=== PATIENT | male | born 1945 | race Caucasian/White ===

== ENCOUNTER → 2017-01-09 | Outpatient (CLI) | payer BC ==
[~2017-01-09] MED LIST: ACET-1311 PO; ASCO500T3 PO; MAGNESIUM SULFATE PO; MELATAB2 PO; MULT-506 PO; WARF2TAB PO
== END | disposition home or self-care (01) ==
LOC: C.RDSM 08:30
PROVIDERS: ATTEND Physical Medicine & Rehabilitation Sports Medicine
DX: M16.11 Unilateral primary osteoarthritis, right hip (principal); Z96.641 Presence of right artificial hip joint

== ENCOUNTER → 2017-08-14 | Outpatient (CLI) | payer BC | END | disposition home or self-care (01) | LOC: C.RDSM 11:59 | PROVIDERS: ATTEND Physical Medicine & Rehabilitation Sports Medicine | DX: M16.11 Unilateral primary osteoarthritis, right hip (principal); Z96.641 Presence of right artificial hip joint ==

== ENCOUNTER → 2017-08-22 | Outpatient (CLI) | payer BC ==
--- NOTE | 2017-08-22 11:36 | DIAGNOSTIC IMAGING REPORT ---
LUMBAR SPINE W/O CONTRAST CLINICAL HISTORY: 72 years-old Male with LUMBAR DISC HERNIATION WITH RADICULOPATHY. Acute low back pain with pain and numbness of the lower extremities COMPARISON: Lumbar spine MR 01/11/2015 TECHNIQUE: Multiplanar, multi sequence MRI of the lumbar spine was performed without intravenous contrast. FINDINGS: The large [id number] software systems architect localizer images demonstrate approximately 13 degrees lumbar spine levoscoliosis. No gross abnormality of the imaged lower chest, abdomen or pelvis identified. Several of the sequences are moderately motion degraded, notably the sagittal T1 and axial images. No acute fracture or subluxation. No marrow replacing process. Moderate bone marrow edema involves the left pedicle at L5 as seen on image 13 series 4 suggesting stress response or reactive changes from underlying facet arthrosis. 11 x 4 mm synovial cyst is noted posterior to the left L3/L4 facet. There is 4 mm anterolisthesis L4 on L5, likely secondary to severe facet arthropathy. Multilevel discogenic degenerative changes and facet arthropathy as below. Epidural lipomatosis of the lumbar spine is seen at L4-L5, notably posteriorly which contributes to the degree of background central canal narrowing. T12-L1: Moderate intervertebral disc space narrowing with circumferential annular disc bulge and moderate facet arthropathy flattening the ventral thecal sac. No significant central canal or foraminal narrowing on the sagittal images alone. Unchanged. L1-L2: Moderate intervertebral disc space narrowing with circumferential annular disc bulge, posterior spondylitic spurring, moderate facet arthropathy with ligamentum flavum thickening and small facet effusions. No significant central canal or foraminal narrowing. Unchanged. L2-L3: Moderate intervertebral disc space narrowing with posterior spinal spurring, moderate facet arthropathy with ligament flavum thickening, small facet effusions and broad-based posterior disc bulge findings cause mild to moderate central canal stenosis with AP dimension of the thecal sac measuring 7 mm and mild bilateral foraminal narrowing. Findings have slightly progressed from comparison. L3-L4: Moderate intervertebral disc space narrowing with posterior spondylitic spurring, circumferential disc bulge and small annular fissure. Postoperative changes at this level compatible with prior laminectomy. Evaluation however of the posterior elements is somewhat limited secondary to micrometallic artifact. Moderate facet arthrosis. Previously noted disc extrusion is no longer identified. There is mild central canal, moderate right and mild left foraminal narrowing. L4-L5: Severe facet arthropathy with ligamentum flavum thickening. Moderate intervertebral disc space narrowing with circumferential annular disc bulge. The canal is narrowed to 6 mm in AP dimension causing severe central canal, moderate to severe right and moderate left foraminal stenosis. These findings have progressed from prior study. L5-S1: Moderate intervertebral disc space narrowing with posterior spondylitic spurring, moderate to severe facet arthrosis with ligament flavum thickening. Annular fissure with Broad-based left paracentral/left lateral recess and foraminal disc extrusion measures up to 1.7 x 0.5 x 0.5 cm in transverse, AP and craniocaudal dimensions respectively causing severe left lateral recess, mild central canal and severe left foraminal narrowing. There is abutment and displacement of the left S1 nerve root. There is at least moderate right foraminal stenosis. These findings have worsened from prior study. IMPRESSION: 1. Postoperative changes of laminectomy with posterior decompression at L3-L4. Previously noted disc extrusion at this level is no longer present. 2. Multilevel discogenic degenerative changes and facet arthropathy as detailed level by level above, mildly progressed from comparison study 01/11/2015. 3. At L2-L3 there is mild to moderate central canal and mild bilateral foraminal narrowing. 4. At L4-L5, severe facet arthropathy with discogenic degenerative changes causes severe central canal, moderate to severe right and moderate left foraminal narrowing. 5. At L5-S1, there is a broad-based left paracentral/left lateral recess and foraminal disc extrusion causing severe left lateral recess, mild central canal and severe left foraminal narrowing abutting and displacing the adjacent left S1 nerve root. 6. Bone marrow edema of the left S5 pedicle suggests stress response or may be reactive from underlying degenerative changes. The above report was generated using voice recognition software. It may contain grammatical, syntax or spelling errors. Electronically signed by: Tyree Landeros M.D. 08/22/2017 11:34 AM Dictated Date/Time: 08/22/2017 10:35 AM
== END | disposition home or self-care (01) ==
LOC: C.MRI 09:25
PROVIDERS: ATTEND Physical Medicine & Rehabilitation Sports Medicine
DX: M16.11 Unilateral primary osteoarthritis, right hip (principal); Z96.641 Presence of right artificial hip joint; M51.17 Intervertebral disc disorders with radiculopathy, lumbosacral region

== ENCOUNTER 2017-12-17 17:55 | Emergency (ER) | payer OTHER ==
[~2017-12-17] VITALS: Ht 167.6 cm; Wt 79.7 kg
[2017-12-17 18:00] VITALS: TEMP 37.2; Ht 167.6 cm; Wt 79.7 kg
[2017-12-17] MEDS ORDERED: HOME1TAB8 PO (18:18)
[2017-12-17] MEDS ORDERED: MAGN250T9 PO (18:18)
--- NOTE | 2017-12-17 18:54 | DIAGNOSTIC IMAGING REPORT ---
LUMBAR SPINE 2 OR 3 VIEWS CLINICAL HISTORY: lower back pain COMPARISON STUDY: MRI performed August 2017 FINDINGS: No acute fractures are visualized. There are mild multilevel degenerative changes. There is a grade 1 spondylolisthesis of L4 and L5. There is an L3-4 spinous process spacer. IMPRESSION: Postsurgical change. No acute fractures identified. Degenerative changes Electronically signed by: Betito Tavera M.D. 12/17/2017 6:53 PM Dictated Date/Time: 12/17/2017 6:52 PM
[2017-12-17 19:45] VITALS: BP 145/84; PULSE 80; O2SAT 95
[2017-12-17] MEDS ORDERED: PRED20TA PO (20:07)
--- NOTE | 2017-12-17 21:48 | EMERGENCY ROOM VISIT NOTE ---
History Report prepared by Corbin: Aleksandra Yao Under the Supervision of: Kerry MichelO. First contact with patient: 18:01 Chief Complaint: BACK PAIN Stated Complaint: BACK PAIN History of Present Illness The patient is a 72 year old male who presents to the Emergency Room with complaints of persistent back pain since this morning. He describes it as soreness. He notes that he was getting out of bed this morning and the pain was worse than normal. He notes the pain exacerbated when he began walking. He notes that he is limping due to the pain. He reports leg weakness in bilateral thighs, though he is able to walk. He also notes mild leg numbness which is not present currently. He notes a cough and runny nose. He notes mild abdominal pain. He has no pain at this time while he was sitting in bed. He has a history of back pain, though reports his symptoms are new. Pt denies headache, change in vision, fevers, chest pain, shortness of breath, nausea, vomiting, diarrhea, or pain with urination. No saddle paresthesias. Able to move his bowels and urinate without difficulty. Source of History: patient Onset: since this morning Position: back Quality: other (soreness) Timing: other (persistent) Modifying Factors (Worsening): other (walking) Associated Symptoms: + cough, + abdominal pain (mild), + weakness (leg), + numbness (mild leg ), No fevers, No headache, No chest pain, No SOB, No nausea, No vomiting, No diarrhea, No urinary symptoms (no pain with urination) Note: He notes a runny nose. He denies any change in vision. Review of Systems See HPI for pertinent positives & negatives. A total of 10 systems reviewed and were otherwise negative. Past Medical & Surgical Medical Problems: (1) Back pain (2) DJD (degenerative joint disease) of hip (3) Kidney stones Family History No pertinent family history Social History Smoking Status: Never Smoker Smokeless Tobacco Use: No Alcohol Use: none Marital Status: single Housing Status: lives alone Occupation Status: employed Current/Historical Medications Scheduled Acetaminophen (Tylenol), 650 MG PO PRN Prednisone (Prednisone), 1 TAB PO DAILY Scheduled PRN Ascorbic Acid (Vitamin C), 500 MG PO DAILY PRN for PRN Homeopathic Products (Zicam Cold Remedy), 1 TAB PO DIRECTED PRN for COLD SYMPTOMS Magnesium (Magnesium), 1 TAB PO DAILY PRN for PRN Melatonin (Melatonin Maximum Strengt), 1 TAB PO HS PRN for Sleep Multivitamin (Multivitamin), 1 TAB PO DAILY PRN for PRN Allergies Coded Allergies: Gluten (Verified Allergy, Severe, GI INTOLERANCE, 12/17/17) Lactose (Verified Allergy, Severe, G I INTOLERANCE, 12/17/17) Physical Exam Vital Signs Date Time Temp Pulse Resp B/P (MAP) Pulse Ox O2 Delivery O2 Flow Rate FiO2 12/17/17 19:45 80 18 145/84 95 Room Air 12/17/17 18:00 37.2 73 18 165/101 95 Room Air Physical Exam GENERAL: Sitting on edge of bed, alert, well appearing, well nourished, no distress, non-toxic EYE EXAM: normal conjunctiva. OROPHARYNX: no exudate, no erythema, lips, buccal mucosa, and tongue normal and mucous membranes are moist NECK: supple, no nuchal rigidity, no adenopathy, non-tender LUNGS: Clear to auscultation. Normal chest wall mechanics HEART: no murmurs, S1 normal and S2 normal ABDOMEN: abdomen soft, non-tender, normo-active bowel sounds, no masses, no rebound or guarding. BACK: Back is symmetrical on inspection and there is no deformity, no midline tenderness, no CVA tenderness. Old midline incision in lower lumbar region. SKIN: no rashes and no bruising UPPER EXTREMITIES: upper extremities are grossly normal. LOWER EXTREMITIES: No pitting edema. Flexion and extension of hip, knee, ankle, and EHL 5/5 bilaterally. Gross sensation intact. Able to ambulate on heels and toes, unable to appreciate patellar and Achilles reflexes. NEURO EXAM: Normal sensorium, cranial nerves II-XII grossly intact, normal speech, no gross weakness of arms. Medical Decision & Procedures ER Provider Diagnostic Interpretation: Radiology results as stated below per my review and the radiologist's interpretation: LUMBAR SPINE 2 OR 3 VIEWS CLINICAL HISTORY: lower back pain COMPARISON STUDY: MRI performed August 2017 FINDINGS: No acute fractures are visualized. There are mild multilevel degenerative changes. There is a grade 1 spondylolisthesis of L4 and L5. There is an L3-4 spinous process spacer. IMPRESSION: Postsurgical change. No acute fractures identified. Degenerative changes Electronically signed by: Betito Tavera M.D. 12/17/2017 6:53 PM Dictated Date/Time: 12/17/2017 6:52 PM ED Course ED COURSE: Vital signs were reviewed and showed hypertensive. The patients medical record was reviewed The above diagnostic studies were performed and reviewed. ED treatments and interventions as stated above. 1804: The patient was evaluated in room A3. A complete history and physical examination was performed. 1934: I reassessed the patient at this time. He is resting. 1999: Ordered Prednisone 10 mg PO 2009: Upon reevaluation, the patient is feeling better. I discussed my findings with the patient and he understands and agrees with the treatment plan. Based on the patients age, coexisting illnesses, exam and lab findings the decision to treat as an outpatient was made. The patient remained stable while under my care. The patient appeared well at the time of discharge. Medical Decision Differential diagnoses includes but is not limited to lumbar radiculopathy, muscle strain, facture, cauda equina, mass, and disc herniation. Patient is a 72-year-old male that presents to ER with mild pain in his lower back which started earlier today. Started while getting out of bed. On exam he is neurologically intact. Able to ambulate without difficulty. He is able to walk on his heels and toes. He only has pain with up and walking around. There is no focal deficit on exam. No fevers. No recent trauma. X-rays were unremarkable. Discussed with orthopedics. I did give him a small dose of steroids as he was concerned that this could be radicular and worsen. With his minimal pain I did not feel there was a benefit to narcotics. Recommend Tylenol /Motrin. Discussed with Pt concerning signs and symptoms to watch out for. Pt was instructed to follow up with their PCP and discussed with the patient their option to return to the ED at anytime for persistent or worsening symptoms. The appropriate anticipatory guidance and out-patient management, including indications for return to the emergency department, were explained at length to the patient and understood. Medication Reconcilliation Current Medication List: was personally reviewed by me Blood Pressure Screening Patient's blood pressure: Elevated blood pressure Blood pressure disposition: Elevated BP felt to be situational Impression Primary Impression: Back pain Scribe Attestation The scribe's documentation has been prepared under my direction and personally reviewed by me in its entirety. I confirm that the note above accurately reflects all work, treatment, procedures, and medical decision making performed by me. Departure Information Dispostion Home / Self-Care Prescriptions Prednisone (Prednisone) 20 Mg Tab 1 TAB PO DAILY for 3 Days, #3 TAB Prov: Khari James, DO 12/17/17 Referrals David Randolph MD (PCP) Forms HOME CARE DOCUMENTATION FORM, IMPORTANT VISIT INFORMATION Patient Instructions Back Pain - [facility], [facility] Additional Instructions Please follow up with your primary care doctor with in the next 24 hours. Any worsening of your symptoms, please return to the ED immediately. This includes any fevers greater than 100.4, worsening pain, weakness or numbness in the arms or legs, chest pain, shortness breath, persistent nausea, vomiting, unable to eat or drink, or any other concerning signs or symptoms from your standpoint. Please take the steroids as prescribed. Problem Qualifiers Primary Impression: Back pain Back pain location: low back pain Chronicity: acute Back pain laterality: unspecified Sciatica presence: unspecified whether sciatica present Qualified Codes: M54.5 - Low back pain
== END 2017-12-17 20:19 | disposition home or self-care (01) ==
LOC: C.EDA 17:55
DX: M54.5 Low back pain (principal); M16.10 Unilateral primary osteoarthritis, unspecified hip; Z87.442 Personal history of urinary calculi; Z91.011 Allergy to milk products; Z91.018 Allergy to other foods

== ENCOUNTER → 2018-01-29 | Outpatient (CLI) | payer OTHER ==
[~2018-01-29] MED LIST changes: +HOME1TAB8 PO; +MAGN250T9 PO; -MAGNESIUM SULFATE PO; -WARF2TAB PO
== END | disposition home or self-care (01) ==
LOC: C.RDSM 15:09
PROVIDERS: ATTEND Physical Medicine & Rehabilitation Sports Medicine
DX: M25.551 Pain in right hip (principal); M16.11 Unilateral primary osteoarthritis, right hip; Z96.641 Presence of right artificial hip joint

== ENCOUNTER → 2018-02-14 | Outpatient (CLI) | payer OTHER | END | disposition home or self-care (01) | LOC: C.RDSM 14:19 | PROVIDERS: ATTEND Family Medicine | DX: M25.562 Pain in left knee (principal) ==

== ENCOUNTER → 2018-05-11 | Outpatient (CLI) | payer OTHER ==
--- NOTE | 2018-05-11 09:43 | DIAGNOSTIC IMAGING REPORT ---
LUMBAR SPINE 2 OR 3 VIEWS HISTORY: 72 years-old Male S/P LAMINECTOMY status post L4-L5 laminectomy COMPARISON: Lumbar spine radiographs 12/17/2017 TECHNIQUE: 2 views of the lumbar spine FINDINGS: L3-L4 spinous process space or is unchanged. Levoscoliosis of the lumbar spine. Interval placement of posterior interbody lanny and screw fusion at L4-L5. Grade 1 anterolisthesis L4 on L5 is unchanged. At least mild multilevel intervertebral disc space narrowing with spondylitic spurring. Severe multilevel facet arthrosis. No acute fracture. Right hip arthroplasty partially imaged. Moderate left hip posterior arthritis. IMPRESSION: Status post laminectomy with posterior interbody lanny and screw fusion at L4-L5 with unchanged alignment. The above report was generated using voice recognition software. It may contain grammatical, syntax or spelling errors. Electronically signed by: Tyree Landeros M.D. 05/11/2018 9:42 AM Dictated Date/Time: 05/11/2018 9:37 AM
== END | disposition home or self-care (01) ==
LOC: C.RDSM 09:00
PROVIDERS: ATTEND Orthopaedic Surgery
DX: Z98.890 Other specified postprocedural states (principal)

== ENCOUNTER → 2018-06-01 | Outpatient (CLI) | payer OTHER ==
--- NOTE | 2018-06-01 09:50 | DIAGNOSTIC IMAGING REPORT ---
LUMBAR SPINE 2 OR 3 VIEWS CLINICAL HISTORY: 72 years-old Male presenting with F/U POST OP LAMINECTOMY. TECHNIQUE: Frontal and lateral views of the lumbar spine were obtained. COMPARISON: 05/11/2018. FINDINGS: Redemonstration of posterior bilateral transpedicular screw and lanny fixation of L4-5 with a L3-4 interspinous spacer. Laminectomy of L4 may be present. Mild levoscoliotic curvature of the lumbar spine centered at L3. This is unchanged. Minimal anterolisthesis of L4 on L5 again noted. Vertebral body heights and alignment otherwise maintained. Intervertebral disc heights preserved. Mild multilevel degenerative change. Osseous neural foraminal narrowing may be present at L3-4 though the appearance may also be due to scoliosis. No radiographic evidence of a compression deformity or acute subluxation. Nonobstructive bowel gas pattern. Total right hip arthroplasty. Atherosclerosis. IMPRESSION: 1. L4-5 posterior fusion with L3-4 interspinous spacer and suspected L4 laminectomy. This is unchanged from prior. 2. No radiographic evidence of acute osseous injury. 3. Additional findings as above. Electronically signed by: Richard Wong M.D. 06/01/2018 9:48 AM Dictated Date/Time: 06/01/2018 9:45 AM
== END | disposition home or self-care (01) ==
LOC: C.RDSM 07:00
PROVIDERS: ATTEND Orthopaedic Surgery
DX: M54.16 Radiculopathy, lumbar region (principal)

== ENCOUNTER 2020-03-31 05:17 | Observation (INO) ==
--- NOTE | 2020-03-18 20:05 | PAT Medication Instructions ---
Medication Instructions Date of Service March 18, 2020 Home Medications atorvastatin 10 mg PO WK naproxen 250 mg PO BID PRN omeprazole 20 mg PO DAILY PRN Continue as directed atorvastatin 10 mg PO WK ASK your surgeon for instructions naproxen 250 mg PO BID PRN Take morning of surgery With a small sip of water, OTHERWISE NOTHING TO EAT OR DRINK AFTER MIDNIGHT: omeprazole 20 mg PO DAILY PRN (if needed) Take evening before surgery omeprazole 20 mg PO DAILY PRN (if needed) Other Notes If you have any questions please call us at [phone] or [phone] or [phone] or [phone]
--- NOTE | 2020-03-19 13:34 | Anesthesiology Consultation ---
Date of Service March 19, 2020 Assessment & Plan (1) Encounter for pre-operative examination: Per PAT assessment on 03/19: Travel screen negative. No known COVID-19 positive contacts. No current COVID-19 related symptoms. No hx of COVID-19 testing. - Mild hyperkalemia (5.2) on preop labs: at anesthesiologist discretion AM DOS if repeat K+ needed. Chart Review Chart Review: Acceptable Risk for Surgery (pending surgeon-ordered PCP clearance done 03/17 (Dr. Randolph)) and Patient seen in Pre Admission Testing Teaching & Discussion Pre-Anesthesia Teaching/Discussion Notes: Instructed NPO after midnight before surgery,except medications with 15 cc of water. Medication instructions provided according to the PAT guidelines. History Surgery Operation Date: 03/31/20 07:00 Proposed Procedures p Left Total Hip Arthroplasty - Amrik Cooley MD Height/Weight Height: 5 ft 6.14 in Weight: 78.2 kg Allergies Allergy/AdvReac Type Severity Reaction Status Date / Time gluten Allergy Severe GI Verified 03/16/20 13:48 INTOLERANCE lactose Allergy Severe G I Verified 03/16/20 13:48 INTOLERANCE Medications Home Medications Medication Instructions Recorded Confirmed Last Taken atorvastatin 10 mg PO WK 03/16/20 03/16/20 Unknown naproxen 250 mg PO BID PRN 03/16/20 03/16/20 Unknown omeprazole 20 mg PO DAILY PRN 03/16/20 03/16/20 Unknown Past Medical History Medical History Acid reflux controlled Gout History of kidney stones History of melanoma Hyperlipidemia Osteoarthritis Osteoporosis Exercise / Class Metabolic Activity II 4-5 Yardwork/Stairs/Walk up hill Past Family History Family History Father Diabetes Other No family history of adverse response to anesthesia Past Surgical History Surgical History History of appendectomy History of lumbar surgery x 2 History of melanoma excision History of right hip replacement History of surgery Rt ureter History of tooth extraction Past Anesthesia History No Hx of Anesthesia Complications and No Family Hx of Anesthesia Complications History of PONV No Hx of PONV and No Hx of Motion Sickness Social History Smoking Status: Never smoker Do You Dip or Chew Tobacco: No Hx Alcohol Use: Yes alcohol intake frequency: a few times a month Hx Substance Use: No substance use type: does not use Review of Systems Patient denies chest pain, shortness of breath, dyspnea on exertion, fever, chills, cough, wheezing, palpitations. Physical Exam Vital Signs VITALS BP 132/75 P 56 TEMP 98.1 SP02 99%RA RESP 16 PHYSICAL Full neck and c-spine range of motion. Full TMJ range of motion. TMD 3 finger breaths Mallampati Score 2 Dentition: intact, + implants/crowns on sides/molars Lungs: clear throughout to auscultation Cardiac: regular rate and rhythm, no murmurs noted Spine: normal Carotid arteries: negative bruit Extremities: no edema Testing Laboratory Results 03/19/20 13:55 03/19/20 13:55 PT 11.0 Seconds (9.0-12.0) 03/19/20 13:55 INR 1.0 (0.9-1.1) 03/19/20 13:55 APTT 29.9 Seconds (21.0-31.0) 03/19/20 13:55 Urine Color Yellow 03/19/20 Unknown Urine Appearance Clear (Clear) 03/19/20 Unknown Urine pH 5.5 (4.5-7.5) 03/19/20 Unknown Ur Specific [place] 1.022 (1.000-1.030) 03/19/20 Unknown Urine Protein Negative (Negative) 03/19/20 Unknown Urine Glucose (UA) Negative (Negative) 03/19/20 Unknown Urine Ketones Negative (Negative) 03/19/20 Unknown Urine Nitrite Negative (Negative) 03/19/20 Unknown Ur Leukocyte Esterase Negative (Negative) 03/19/20 Unknown Blood Type O Positive 03/19/20 13:55 Antibody Screen NEGATIVE 03/19/20 13:55 Electrocardiogram Date: 03/19/20 SB at 48bpm. unconfirmed report. Chest X-Ray Date: 03/19/20 Findings: + NAD
--- NOTE | 2020-03-19 14:42 | XRay Report ---
XR chest Pre-admission PA/Lat HISTORY: Preop. COMPARISON: None. FINDINGS: The lungs are clear. Cardiac silhouette is normal in size. No pleural effusions. No pneumot horax. IMPRESSION: No acute process. ACT 112: Negative or not required by law. Electronically signed by: Ulysses Howard M.D. 03/19/2020 2:40 PM
[2020-03-19 15:21] LABS: Basophils # (auto) 0.03 K/uL (0-0.2); Basophils % (auto) 0.5 %; Eosinophils # (auto) 0.09 K/uL (0-0.5); Eosinophils % (auto) 1.6 %; Hematocrit (blood only) 44.4 % (42-52); Hemoglobin 15.4 g/dL (14.0-18.0); Lymphocytes % (auto) 49.2 %; Mean Corpuscular Hemoglobin 31.5 pg (25-34); Mean Corpuscular Hgb Conc 34.7 g/dL (32-36); Mean Corpuscular Volume 90.8 fL (80-100); Mean Platelet Volume 10.7 fL (7.4-10.4); Monocytes # (auto) 0.49 K/uL (0.11-0.59); Monocytes % (auto) 8.6 %; Neutrophils # (auto) 2.28 K/uL (1.4-6.5); Neutrophils % (auto) 40.1 %; Platelet Count 158 K/uL (130-400); RDW Coefficient of Variation 13.1 % (11.5-14.5); RDW Standard Deviation 43.5 fL (36.4-46.3); Red Blood Count 4.89 M/uL (4.7-6.1); White Blood Count 5.69 K/uL (4.8-10.8)
[2020-03-19 15:21] LABS: Appearance Urine Clear (Clear); Bilirubin Urine Negative (Negative); Blood Urine Negative (Negative); Color Urine Yellow; Glucose Urine UA Negative (Negative); Ketones Urine Negative (Negative); Leukocyte Esterase Urine Negative (Negative); Nitrite Urine Negative (Negative); Protein Urine Negative (Negative); Specific Gravity Urine 1.022 (1.000-1.030); Urobilinogen Urine Negative (Negative); pH Urine 5.5 (4.5-7.5)
[2020-03-19 15:31] LABS: BUN Creatinine Ratio 15.9 (10-20); Calcium 9.2 mg/dl (8.5-10.1); Creatinine Clr Calc Pharmacy 57.2 ml/min; Est GFR (African American) 75.7; Est GFR (Non-African American) 65.3; Potassium 5.2 mmol/L (3.5-5.1)
[2020-03-19 15:32] LABS: Partial Thromboplastin Ratio 1.1; Partial Thromboplastin Time 29.9 Seconds (21.0-31.0)
--- NOTE | 2020-03-19 23:37 | Electrocardiogram Report ---
Test Reason : Blood Pressure : / mmHG Vent. Rate : 048 BPM Atrial Rate : 048 BPM P-R Int : 198 ms QRS Dur : 080 ms QT Int : 454 ms P-R-T Axes : 061 029 020 degrees QTc Int : 405 ms Sinus bradycardia Otherwise normal ECG When compared with ECG of 04-FEB-2016 11:05, No significant change was found Confirmed by Naeem Diop ([id number]) on 03/19/2020 11:37:43 PM Referred By: mArik Cooley Confirmed By:Naeem Diop
--- NOTE | 2020-03-25 15:41 | History & Physical Report ---
Date of Service March 25, 2020 Assessment & Plan (1) Degenerative joint disease of left hip: Informed written consent to proceed with Left total hip arthroplasty will be obtained the morning of surgery.Postoperative prescriptions for Percocet and Coumadin will be provided at discharge from the hospital. Anticipate discharge to home with home health services. Preoperative lab work, EKG, and chest x-ray have been ordered. Medical clearance has been received from Dr. David Randolph. The patient already has access to a rolling walker. The patient is aware of the COVID-19 risks associated with surgical intervention. He is currently asymptomatic of any COVID-19 symptoms. He will obtain COVID-19 nasal swabs testing prior to surgery and results will be made available to him. History of Present Illness Chief Complaint: Left hip pain Primary Care Provider: David Randolph This 74-year-old white male presents today for his preoperative history and physical. He is scheduled to undergo a left hip total hip arthroplasty on 03/31/2020. The patient has had left hip pain for over a year. It has become worse with time. It seems to have really flared over the last 3 months. His left hip hurts when he is doing any type of activity. He notes nighttime stiffness. Occasional night pain. Pain is worse with weightbearing and is aff ecting his ambulation. It is also affecting his ADLs. He has tried activity modification as well as oral anti-inflammatories and oral pain medication without improvement. He denies any numbness or tingling. No loss of bowel or bladder control. Preoperative imaging has been obtained. He elects to proceed with surgical intervention in hopes of improving his function and alleviating his pain. Allergies Allergy/AdvReac Type Severity Reaction Status Date / Time gluten Allergy Severe GI Verified 03/16/20 13:48 INTOLERANCE lactose Allergy Severe G I Verified 03/16/20 13:48 INTOLERANCE Home Medications Home Medications Medication Instructions Recorded Confirmed Type atorvastatin 10 mg PO WK 03/16/20 03/16/20 History naproxen 250 mg PO BID PRN 03/16/20 03/16/20 History omeprazole 20 mg PO DAILY PRN 03/16/20 03/16/20 History Past Med/Surg History Medical History (Updated 03/25/20 @ 15:38 by Rashel Rizzo PA-C) Acid reflux controlled Gout History of kidney stones History of melanoma Hyperlipidemia Osteoarthritis Osteoporosis Surgical History (Updated 03/25/20 @ 15:41 by Rashel Rizzo PA-C) History of appendectomy History of lumbar surgery (~04/2018) x 2 History of melanoma excision (~11/2016) History of right hip replacement (~02/2017) History of surgery Rt ureter History of tooth extraction Family History Father Diabetes Other No family history of adverse response to anesthesia Social History (Updated 03/25/20 @ 15:35 by Rashel Rizzo PA-C) Preferred Language: Mohawk Communication Ability: Effective Hearing Ability: Normal Coke Inspector Required: No Beliefs That Will Affect Care: None marital status: Current Living Situation: Spouse current occupational status: employed current occupation: [employer] Feels Safe at Home: Yes Safety Concerns: Feels Safe At This Time Smoking Status: Never smoker Do You Dip or Chew Tobacco: No ; Second Hand Exposure: No ; Hx Alcohol Use: Yes Hx Substance Use: No Review of Systems Review of Systems: A total of 10 systems were reviewed and are significant only for above stated conditions. Physical Exam Physical Exam: General: Well-developed, well-nourished, elderly white male in no acute distress. Sitting on a chair. Alert and oriented. Skin: Warm and dry with good turgor. No rashes or lesions. No ecchymosis or erythema. No open wounds. HEENT: Normocephalic, atraumatic. Eyes: PERRLA, EOMI. Nares patent bilaterally without turbinate enlargement. Oropharynx exam deferred due to COVID precautions. Heart: RRR, no MGR. Lungs: Clear to auscultation bilaterally, no crackles, rhonchi or wheezing, good air movement. Abdomen: Bowel sounds present x4, soft, nontender. No organomegaly. No masses. Musculoskeletal: Left hip evaluation reveals no obvious asymmetry or deformity. He has fairly good motion with hip flexion to around 100 degrees, external rotation of around 40 degrees, but internal rotation of only less than 5 degrees. These are all limited by pain. He has anterior discomfort across the flexion crease with palpation. No pain with palpation over his IT band and greater trochanter, buttock or SI joint. Ambulates with an antalgic gait. Strength is 5/5 for resisted hip flexion, abduction, and adduction. Neurologic: Gross sensation is intact across both lower extremities by soft touch. Peripheral pulses are 2+. Results & Data Results & Data ([facility]) Diagnostic Findings Radiographic imaging previously obtained shows advanced DJD of the left hip. P eriarticular osteophytes, subchondral sclerosis, and joint space narrowing are all present.
[2020-03-31] MEDS ORDERED: LR 60ML/HR IV SCH (06:00)
[2020-03-31] MEDS ORDERED: LR 500ML BOLUS, THEN 15ML/HR IV SCH (06:00)
[2020-03-31] MEDS ORDERED: ROPIVACAINE 0.5% HCL/PF 150 MG, BUPIVACAINE 0.5% MPF 30 ML, EPINEPHrine 0.15 MG, Ketoro... INFIL SCH (06:00)
[2020-03-31] MEDS ORDERED: CEFAZOLIN 2000MG 2,000 MG/15 ML SYR IV SCH (06:00)
[2020-03-31] MEDS ORDERED: TRANEXAMIC ACID 1,000 MG **IV Pre-op IV SCH (06:00)
[2020-03-31] MEDS ORDERED: BUPIVACAINE 0.5 % 5 MG/1 ML PF 10ML VIAL ONE (06:28)
--- NOTE | 2020-03-31 06:28 | History & Physical Bridge Note ---
Date of Service March 31, 2020 History & Physical Bridge Note I have examined the patient, reviewed the History & Physical and in the interval since the performance of the History & Physical I have noted the following changes of clinical significance: consent obtained/site marked/covid screen negative.no changes noted
[2020-03-31] MEDS ORDERED: ORTHO JOINT ANESTHETIC ONE (06:29)
[2020-03-31] MEDS ORDERED: PROPOFOL IV EMULSION 10 MG/ML 20 ML VIAL IV ONE ×2 (06:36→08:24)
[2020-03-31] MEDS ORDERED: LIDOCAINE HCL 2% 2 ML VIAL/AMP(20MG/ML) INFIL ONE (06:36)
[2020-03-31] MEDS ORDERED: MIDAZOLAM HCL 1 MG/ML 2ML VIAL ONE (06:37)
[2020-03-31] MEDS ORDERED: fentaNYL citrate 100 MCG/2 ML VIAL ONE (06:37)
--- NOTE | 2020-03-31 07:24 | Anesthesiology Consultation ---
Date of Service March 31, 2020 Covid 19 History Surgery Operation Date: 03/31/20 07:00 Proposed Procedures p Left Total Hip Arthroplasty - Amrik Cooley MD Height/Weight Height: 5 ft 6.14 in Weight: 77.8 kg Allergies Allergy/AdvReac Type Severity Reaction Status Date / Time No Known Drug Allergies Allergy . Verified 03/31/20 05:27 gluten AdvReac Severe GI Verified 03/31/20 05:27 INTOLERANCE lactose AdvReac Severe G I Verified 03/31/20 05:27 INTOLERANCE Medications Home Medications Medication Instructions Recorded Confirmed Last Taken atorvastatin 10 mg PO WK 03/16/20 03/31/20 03/28/20 10:00 naproxen 250 mg PO BID PRN 03/16/20 03/31/20 03/29/20 12:00 omeprazole 20 mg PO DAILY PRN 03/16/20 03/31/20 03/28/20 12:00 ibuprofen 200 mg PO Q6H PRN 03/31/20 03/31/20 03/29/20 12:00 Active Medications Generic Name Dose Route Start Last Admin Trade Name Freq PRN Reason Stop Dose Admin Lactated Ringer's 1,000 mls @ 15 mls/hr 03/31/20 06:00 03/31/20 05:49 Lr IV 03/31/20 18:00 Not Given .Q24H DAMIAN Lactated Ringer's 1,000 mls @ 60 mls/hr 03/31/20 06:00 03/31/20 07:10 Lr IV 03/31/20 22:39 Infused .[id number] DAMIAN Infusion Tranexamic Acid 1,000 mg in 100 mls @ 600 mls/hr 03/31/20 06:00 03/31/20 07:06 Tranexamic Acid / 0.7% Nacl IV 03/31/20 18:00 Infused TODAY@0600 DAMIAN Infusion NPO Date Last Intake of Fluids: 03/30/20 Time Last Intake of Fluids: 20:00 Date Last Intake of Solids: 03/30/20 Time Last Intake of Solids: 20:00 Past Medical History Medical History (Updated 03/25/20 @ 15:38 by Rashel Rizzo PA-C) Acid reflux controlled Gout History of kidney stones History of melanoma Hyperlipidemia Osteoarthritis Osteoporosis Past Family History Family History Father Diabetes Other No family history of adverse response to anesthesia Social History Smoking Status: Never smoker Do You Dip or Chew Tobacco: No Hx Alcohol Use: Yes alcohol intake frequency: a few times a month Hx Substance Use: No substance use type: does not use Physical Exam Vital Signs Last Vital Signs Temp 36.8 C 03/31/20 05:33 Pulse 55 L 03/31/20 05:33 Resp 16 03/31/20 05:33 BP 159/92 H 03/31/20 05:33 Pulse Ox 99 03/31/20 05:33 Testing Laboratory Results 03/19/20 13:55 03/19/20 13:55 PT 11.0 Seconds (9.0-12.0) 03/19/20 13:55 INR 1.0 (0.9-1.1) 03/19/20 13:55 APTT 29.9 Seconds (21.0-31.0) 03/19/20 13:55 Urine Color Yellow 03/19/20 Unknown Urine Appearance Clear (Clear) 03/19/20 Unknown Urine pH 5.5 (4.5-7.5) 03/19/20 Unknown Ur Specific [place] 1.022 (1.000-1.030) 03/19/20 Unknown Urine Protein Negative (Negative) 03/19/20 Unknown Urine Glucose (UA) Negative (Negative) 03/19/20 Unknown Urine Ketones Negative (Negative) 03/19/20 Unknown Urine Nitrite Negative (Negative) 03/19/20 Unknown Ur Leukocyte Esterase Negative (Negative) 03/19/20 Unknown Blood Type O Positive 03/19/20 13:55 Antibody Screen NEGATIVE 03/19/20 13:55 Electrocardiogram Date: 03/19/20 SB at 48bpm. unconfirmed report. Chest X-Ray Date: 03/19/20 Findings: + NAD
[2020-03-31] MEDS ORDERED: MEPERIDINE HCL 25 MG/ML CARP/VIAL IV PRN (07:27)
[2020-03-31] MEDS ORDERED: PHENYLEPHRINE 100MCG/ML 5ML SYR IV PRN (07:27)
[2020-03-31] MEDS ORDERED: ONDANSETRON INJ 2 MG/ML 2 ML VIAL IV PRN ×2 (07:27→11:16)
[2020-03-31] MEDS ORDERED: ATROPINE SULFATE 0.1 MG/ML 10ML SYR IV PRN (07:27)
[2020-03-31] MEDS ORDERED: ePHEDrine sulfate 50 MG/ML AMP IV PRN (07:27)
[2020-03-31] MEDS ORDERED: LABETALOL HCL IV 5 MG/ML 20ML IV PRN (07:27)
[2020-03-31] MEDS ORDERED: fentaNYL citrate 100 MCG/2 ML VIAL IV PRN (07:27)
[2020-03-31] MEDS ORDERED: HYDROmorphone INJ 1 MG/ML SYRINGE IV PRN (07:27)
[2020-03-31] MEDS ORDERED: ONDANSETRON INJ 2 MG/ML 2 ML VIAL ONE (08:23)
[2020-03-31] MEDS ORDERED: ePHEDrine sulfate 50 MG/ML SYR ONE (08:29)
--- NOTE | 2020-03-31 08:38 | Post Operative Brief Note ---
Immediate Post Op Note v1 Date of Surgery March 31, 2020 Pre & Post Diagnosis Operation Date: 03/31/20 07:00 Pre-Op Diagnosis: Left Hip Degenerative Joint Disease Post-Op Diagnosis: Left Hip Degenerative Joint Disease I identified the patient and participated in the time-out.: Yes Procedure Operation Date: 03/31/20 07:00 Actual Procedures p Left Total Hip Arthroplasty, Uncemented(Left) - Amrik Cooley MD Surgeon [facility] Blood Loss 100 Findings Consistent with Post-Op Diagnosis
--- NOTE | 2020-03-31 08:53 | Operative Report ---
Post Operative Report Pre & Post Diagnosis Operation Date: 03/31/20 07:00 Pre-Op Diagnosis: Left Hip Degenerative Joint Disease Post-Op Diagnosis: Left Hip Degenerative Joint Disease I identified the patient and participated in the time-out.: Yes Procedure Operation Date: 03/31/20 07:00 Actual Procedures p Left Total Hip Arthroplasty, Uncemented(Left) - Amrik Cooley MD Surgeon GURPREET Cooley MD [facility] alberto Estimated Blood Loss 100 Findings Consistent with Post-Op Diagnosis Specimens see operative report Drains none Complications none Disposition Accompanied Patient To Recovery: Yes Disposition: Recovery Room Indications This 74-year-old white male presented to the office with complaints of intractable left hip pain. He had tried conservative care measures without improvement. Patient previously had a right total hip arthroplasty and has done very well with it. He elected to proceed with the same on the left. Preoperative imaging was obtained. Description of Procedure Patient was administered a spinal anesthetic and then taken to the operating room where he was given sedation. He was prepped and draped in the usual sterile fashion. Please see Dr. Cooley's operative report for specifics of the procedure. I was present for the entire case from initial patient positioning through final wound closure. Assistance was provided in patient positioning, tissue retraction, hemostasis, trial implant placement, final implant placement, and final wound closure. Patient was taken to the recovery room in satisfactory condition. I attest to the content of the Intraoperative Record and any orders documented therein. Any exceptions are noted below.
--- NOTE | 2020-03-31 09:11 | Operative Report (OR) ---
DATE OF OPERATION: 03/31/2020 SURGEON: Amrik Cooley MD. SENIOR IT ARCHITECT: Rashel Rizzo PA-C. No resident or fellow available. PREOPERATIVE DIAGNOSIS: Osteoarthritis, left hip. POSTOPERATIVE DIAGNOSIS: Osteoarthritis, left hip. OPERATION PERFORMED: Left noncemented total hip replacement. SUMMARY OF IMPLANTS: Size 52 acetabular shell sector cup hole eliminator, cancellous screw 6.5 x 30, acetabular liner, 36 x 52+4 neutral liner, femoral stem 5 high offset Tri-Lock and femoral head 36+5 ceramic head. PERIOPERATIVE SITUATION: Medically cleared male with intractable hip pain, had his other hip replaced years ago, has now wishes to have this one done. He understands the risks and consequences based on his last procedure as well as re-discussion. DESCRIPTION OF PROCEDURE: The patient was appropriately identified, site verified, consent verified. Antibiotics confirmed as being given. The left lower extremity was prepped and draped in usual routine fashion with the patient in right lateral decubitus position, care taken to protect the right hip. Once prepped and draped, a posterior approach to the hip was then utilized. Sharp dissection carried through the skin and blunt dissection down to the fascia, the gluteus dallin fascia and IT band then incised. Retractors placed. Care taken to protect the sciatic nerve. Short external rotators were released. The capsule was released. Everything was very tight and based on chronicity of his disease. He was about a centimeter short on that side. Once the capsule was T'd, the hip was dislocated. The femoral neck was resected. The canal was then opened with a steam box hand, canal finder, lateralizing rasp, and serial broaching up to a size 5 with excellent fit. Trial reduction was then carried out on the +5 head, made the leg lengths just about equal. The femoral stem was slightly probably would stick with that if it was seated all the way, we would be able to go with a +8.5. All trial implants were then removed. The wound was then irrigated. The hole eliminator seated, the permanent liner seated, the permanent stem seated. The +5 head was placed and the hip was very stable in all planes. The leg lengths were excellent. The hip was then dislocated. The trial head was removed, the permanent head seated and impacted into position. The ceramic head and the hip reduced with no difficulty. The hip was stable in all planes. The leg lengths were excellent. The wound was then irrigated with Betadine Pulsavac and then closed with #2 Vicryl for the capsule and short external rotators. The deep fascia including the IT band and the gluteus dallin and some deep fat and then the subcutaneous layer closed with 2-0 Vicryl and skin with stainless steel clips. Appropriate dressing applied. The patient transferred to recovery room in satisfactory condition having tolerated the procedure well. Bone pathology pending. ESTIMATED BLOOD LOSS: 100 mL DVT prophylaxis per protocol. I attest to the content of the Intraoperative Record and any orders documented therein. Any exception s are noted below.
--- NOTE | 2020-03-31 09:16 | XRay Report ---
XR pelvis 1-2V routine CLINICAL HISTORY: ap pelvis ceneterd on both hips 1 view only pain COMPARISON: 03/19/2020 DISCUSSION: Placement of a total left hip prosthetic. Good contact between prosthetic and underlying bone. Expected soft tissue postoperative change. Pre-existing total right hip prosthetic in good position. IMPRESSION: Anatomic alignment post placement of a total left hip prosthetic. ACT 112: Negative or not required by law. The above report was generated using voice recognition software. It may contain grammatical, syntax or spelling errors. Electronically signed by: Nick Zhao M.D. 03/31/2020 9:15 AM
--- NOTE | 2020-03-31 09:53 | Anesthesiology Progress Note ---
Date of Service March 31, 2020 Anesthesia Post Procedure Vital Signs Vital Signs: Temp Pulse Pulse Resp BP Pulse Ox 03/31/20 09:40 54 L 19 130/70 97 03/31/20 09:30 51 L 14 119/69 99 03/31/20 09:20 53 L 15 129/76 98 03/31/20 09:10 57 L 12 122/61 99 03/31/20 09:00 56 L 16 125/85 99 03/31/20 08:51 36.0 C L 57 L 24 125/89 99 03/31/20 05:33 36.8 C 55 L 16 159/92 H 99 Pain Intensity Left Hip: Pain Intensity: 1 Transfer of Care Handoff Completed per policy Notes Mental Status: alert / awake / arousable Patient Amnestic to Procedure: Yes Nausea / Vomiting: adequately controlled Pain: adequately controlled Airway Patency, RR, SpO2: stable & adequate BP & HR: stable & adequate Hydration State: stable & adequate Neuraxial Anesthesia: was administered and sensory block is resolving Anesthetic Complications: no major complications apparent and Pt Satisfied with anesthetic care
[2020-03-31] MEDS ORDERED: TAMSULOSIN HCL 0.4 MG CAP PO PRN (11:16)
[2020-03-31] MEDS ORDERED: DiphenhydrAMINE HCL 50 MG/ML VIAL IV PRN (11:16)
[2020-03-31] MEDS ORDERED: HYDROmorphone INJ 0.5 MG/0.5 ML SYR IV PRN (11:16)
[2020-03-31] MEDS ORDERED: ALUMINUM/MAGNESIUM SUSP 30 ML UDC PO PRN (11:16)
[2020-03-31] MEDS ORDERED: METOCLOPRAMIDE HCL INJ 5 MG/ML 2 ML VIAL IV PRN (11:16)
[2020-03-31] MEDS ORDERED: NALOXONE HCL 0.4 MG/1 ML VIAL/CARP IV PRN (11:16)
[2020-03-31] MEDS ORDERED: MAGNESIUM HYDROXIDE SUSP 30 ML UDC PO PRN (11:16)
[2020-03-31] MEDS ORDERED: bisacodyL 10 MG SUPP PR PRN (11:16)
[2020-03-31] MEDS ORDERED: OXYCODONE HCL IR 5 MG TAB (IMMEDIATE RELEASE) PO PRN (11:16)
[2020-03-31] MEDS ORDERED: SODIUM CHLORIDE 0.9% 1000ML 1,000 ML IV SCH (11:16)
[2020-03-31] MEDS: KETOROLAC TROMETHAMINE 15 MG/ML VIAL IV SCH ×3 (11:54→23:48)
[2020-03-31] MEDS: DOCUSATE SODIUM 100 MG CAP PO SCH ×2 (11:55→21:25)
[2020-03-31] MEDS: PANTOprazole 40 MG TAB PO SCH ×2 (11:55→17:35)
[2020-03-31] MEDS: MULTIVITAMIN TAB PO SCH (11:55)
[2020-03-31] MEDS ORDERED: VANCOMYCIN HCL 1,250 MG in SODIUM CHLORIDE 0.9% 250 ML IV ONE (12:00)
[2020-03-31] MEDS: CEFAZOLIN 2000MG 2,000 MG/15 ML SYR IV SCH ×2 (14:45→22:41)
[2020-03-31] MEDS: ACETAMINOPHEN 500 MG TAB PO SCH ×2 (14:46→21:25)
[2020-03-31] MEDS: ORTHO WARFARIN NOMOGRAM SCH (14:47)
[2020-03-31] MEDS ORDERED: TRANEXAMIC ACID / 0.7% NACL 1,000 MG/100 ML BAG IV SCH (15:00)
--- NOTE | 2020-03-31 15:38 | Progress Notes ---
DATE: 03/31/2020 SUBJECTIVE: Postop check, status post left total hip replacement. The patient is sitting up in bed, comfortable. He denies any chest pain, shortness of breath, fever, chills, nausea, vomiting. He has only a minor dull headache. He notes that it feels like he is a little bit cloudy from the medication. He notes that his hip is minimal pain. He has been up to the bathroom and moving around voiding. He ate his lunch and had fluid to drink. He has urinated already. OBJECTIVE: Vital signs are stable. He is afebrile. Neurovascular check femoral sciatic nerve is good. Wound dressing clean, dry and intact. Hip is located. Leg lengths are equal. Postop x-rays look excellent. ASSESSMENT: Doing well status post left total hip replacement. At this point in time mobilize. Discontinue IV fluid and prepare for discharge tomorrow.
--- NOTE | 2020-03-31 15:40 | Discharge Summary (DS) ---
CHIEF COMPLAINT: Left hip pain. HISTORY OF PRESENT ILLNESS: The patient underwent elective left total hip replacement. He has done well. He has no major issues. At this point in time, he is ambulatory, voiding, eating, drinking. Vital signs are stable. He is afebrile. PAST MEDICAL HISTORY: Remarkable for GERD, gout, kidney stones, melanoma, hyperlipidemia, osteoarthritis, osteoporosis. PAST SURGICAL HISTORY: Remarkable for appendectomy, lumbar surgery, melanoma excision, right hip replacement, ureter surgery on the right for stones, tooth extraction. REVIEW OF SYSTEMS: Reveals no chest pain, shortness of breath, fever, chills, nausea, vomiting or headache. FAMILY HISTORY: Remarkable for diabetes. SOCIAL HISTORY: Reveals that he speaks Persian but is Algerian; he speaks well. His hearing is good. He is . He is employed. He feels safe at home. No alcohol or tobacco use to speak of. REVIEW OF SYSTEMS: Noncontributory as noted above. Postop x-rays look excellent. Leg lengths are equal. ASSESSMENT: Overall doing well status post left total hip replacement. Plan is for discharge to home tomorrow. Coumadin for DVT prophylaxis. Keep INR 1.8-2.2.
[2020-03-31] MEDS ORDERED: WARFARIN SOD 5 MG TAB PO SCH (16:00)
[2020-03-31] MEDS: FERROUS GLUCONATE 324 MG TAB PO SCH (17:29)
[2020-03-31] MEDS: ASCORBIC ACID 500 MG TAB PO SCH (17:30)
[2020-03-31] MEDS ORDERED: SENNA 8.6 MG TAB PO SCH (21:00)
[2020-03-31] MEDS: ATORVASTATIN 10 MG TAB PO SCH (21:25)
[2020-04-01] MEDS: ACETAMINOPHEN 500 MG TAB PO SCH (06:11)
[2020-04-01] MEDS: KETOROLAC TROMETHAMINE 15 MG/ML VIAL IV SCH ×2 (06:13→08:36)
[2020-04-01 06:50] LABS: Basophils # (auto) 0.01 K/uL (0-0.2); Basophils % (auto) 0.1 %; Eosinophils # (auto) 0.02 K/uL (0-0.5); Eosinophils % (auto) 0.2 %; Hematocrit (blood only) 36.3 % (42-52); Hemoglobin 12.7 g/dL (14.0-18.0); Immature Granulocytes # (auto) 0.01 K/uL (0.00-0.02); Immature Granulocytes % (auto) 0.1 %; Lymphocytes # (auto) 1.63 K/uL (1.2-3.4); Lymphocytes % (auto) 17.6 %; Mean Corpuscular Hemoglobin 31.7 pg (25-34); Mean Corpuscular Volume 90.5 fL (80-100); Monocytes # (auto) 1.12 K/uL (0.11-0.59); Monocytes % (auto) 12.1 %; Neutrophils # (auto) 6.46 K/uL (1.4-6.5); Neutrophils % (auto) 69.9 %; Platelet Count 123 K/uL (130-400); RDW Coefficient of Variation 13.4 % (11.5-14.5); RDW Standard Deviation 44.1 fL (36.4-46.3); Red Blood Count 4.01 M/uL (4.7-6.1); White Blood Count 9.25 K/uL (4.8-10.8)
[2020-04-01 06:57] LABS: INR 1.1 (0.9-1.1); Prothrombin Time 11.3 Seconds (9.0-12.0)
--- NOTE | 2020-04-01 07:01 | Progress Notes ---
DATE: 04/01/2020 SUBJECTIVE: Postop day #1 status post left total hip replacement. The patient is doing well. Denies any chest pain, shortness of breath, fever, chills, nausea, vomiting or headache. He states his pain is controlled with Tylenol. He has been up, moving around. He is voiding, eating, drinking, no issues. OBJECTIVE: VITAL SIGNS: Stable. He is afebrile. LABORATORY DATA: Laboratory work this morning is pending. ASSESSMENT AND PLAN: Overall doing well. Discharged to home today. Coumadin dose per nomogram, if 1.4 or less, discharged on 4 mg; if greater than 1.4, discharged on 2 mg. Check INR again on Monday. Dressing changed today with good pressure dressing on over the weekend. Leave on for next 4-5 days. Need to change it after that. Follow up in 2 weeks.
[2020-04-01 07:15] LABS: BUN Creatinine Ratio 17.8 (10-20); Calcium 8.3 mg/dl (8.5-10.1); Creatinine Clr Calc Pharmacy 55.1 ml/min; Est GFR (African American) 72.5; Est GFR (Non-African American) 62.6; Potassium 4.3 mmol/L (3.5-5.1)
[2020-04-01] MEDS ORDERED: dexAMETHasone 10 MG in SYRINGE 0 ML IV SCH (08:00)
[2020-04-01] MEDS ORDERED: KETOROLAC TROMETHAMINE 15 MG/ML VIAL IV STA (08:05)
[2020-04-01] MEDS: DOCUSATE SODIUM 100 MG CAP PO SCH (08:06)
[2020-04-01] MEDS: ATORVASTATIN 10 MG TAB PO SCH (08:06)
[2020-04-01] MEDS: FERROUS GLUCONATE 324 MG TAB PO SCH (08:06)
[2020-04-01] MEDS: ASCORBIC ACID 500 MG TAB PO SCH (08:06)
[2020-04-01] MEDS: MULTIVITAMIN TAB PO SCH (08:06)
[2020-04-01] MEDS ORDERED: WARFARIN SOD 5 MG TAB PO ONE (11:30)
[2020-04-01] MEDS: PANTOprazole 40 MG TAB PO SCH (12:29)
[2020-04-01] MEDS: ORTHO WARFARIN NOMOGRAM SCH (12:29)
[2020-04-04] MEDS ORDERED: ATORVASTATIN 10 MG TAB PO SCH (09:00)
== END 2020-04-01 13:53 | disposition home health service (06) ==
LOC: ASU 05:17 → INTOOBSV 08:59 → 3E 08:59